=== PATIENT | male | born 1985 | race Asian ===

== ENCOUNTER 2019-11-23 06:48 | Emergency (ER) | payer OTHER ==
[~2019-11-23] VITALS: Ht 177.8 cm; Wt 106.6 kg
--- NOTE | 2019-11-23 07:10 | NUR ---
Dr. Garcia at bedside for MSE
[2019-11-23] MEDS ORDERED: IBUPROFEN 600 MG TABLET ONE (07:22)
[2019-11-23] MEDS ORDERED: IBUPROFEN 600 MG TABLET PO ONE (07:30)
--- NOTE | 2019-11-23 07:32 | NUR ---
Patient discharged to home in stable condition. Written and verbal after care instructions given. Patient verbalizes understanding of instructions. Stressed follow up or return to ER for worsening s/s. Patient ambulating with steady gait. NAD noted
[2019-11-23 07:36] VITALS: BP 143/93
== END 2019-11-23 07:34 | disposition home or self-care (01) ==
LOC: ER 06:59
DX: S16.1XXA Strain of muscle, fascia and tendon at neck level, initial encounter (principal); S46.911A Strain of unspecified muscle, fascia and tendon at shoulder and upper arm level, right arm, initial encounter; S10.81XA Abrasion of other specified part of neck, initial encounter; Y04.8XXA Assault by other bodily force, initial encounter; Y93.F9 Activity, other caregiving; Y92.230 Patient room in hospital as the place of occurrence of the external cause; Y99.0 Civilian activity done for income or pay
CPT/HCPCS: A4663

== ENCOUNTER 2020-03-07 02:13 | Emergency (ER) | payer OTHER ==
[~2020-03-07] VITALS: Ht 177.8 cm; Wt 108.9 kg
--- NOTE | 2020-03-07 02:25 | NUR ---
Dr Saini at bedside for MSE.
[2020-03-07] MEDS ORDERED: IBUPROFEN 400 MG TABLET PO ONE (02:30)
[2020-03-07] MEDS ORDERED: IBUPROFEN 400 MG TABLET ONE (02:34)
--- NOTE | 2020-03-07 03:03 | NUR ---
Patient was dishcarged from ER. MD advised patient that he may return to work tonight, as long as he won't be required to use his L hand. Furthermore, an excuse for work was provided for patient's next shift so he can go to worker's comp and figure out what the next steps are. Thumb spica velcro splint applied. Rest, Ice, Compress and Elevate emphasized. Written and verbal after care instructions given also given, along with prescription. Patient verbalizes understanding of instructions. Stressed follow up or return to ER for worsening s/s. Patient ambulated out of ED in steady gait.
[2020-03-07 03:15] VITALS: BP 150/89
== END 2020-03-07 03:00 | disposition home or self-care (01) ==
LOC: ER 02:15
DX: S63.602A Unspecified sprain of left thumb, initial encounter (principal); X50.0XXA Overexertion from strenuous movement or load, initial encounter; X50.9XXA Other and unspecified overexertion or strenuous movements or postures, initial encounter; Y93.F9 Activity, other caregiving; Y92.238 Other place in hospital as the place of occurrence of the external cause; Y99.0 Civilian activity done for income or pay; R03.0 Elevated blood-pressure reading, without diagnosis of hypertension
CPT/HCPCS: 73130; A4663

== ENCOUNTER 2021-04-18 00:32 | Emergency (ER) | payer OTHER ==
[~2021-04-18] VITALS: Ht 177.8 cm; Wt 117.9 kg
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
--- NOTE | 2021-04-18 00:43 | NUR ---
Dr. Mix on bedside for MSE.
--- NOTE | 2021-04-18 01:34 | NUR ---
Dr. Mix on bedside.
[2021-04-18 01:41] VITALS: BP 143/87
--- NOTE | 2021-04-18 01:41 | NUR ---
Patient discharged to home in stable condition. Written and verbal after care instructions given. Patient verbalizes understanding of instructions. Stressed follow up or return to ER for worsening s/s. Patient ambulated fr the ER with steady gait. All belongings with patient.
== END 2021-04-18 01:42 | disposition home or self-care (01) ==
LOC: ER 00:39
DX: S09.90XA Unspecified injury of head, initial encounter (principal); Y04.0XXA Assault by unarmed brawl or fight, initial encounter; W18.39XA Other fall on same level, initial encounter; Y92.89 Other specified places as the place of occurrence of the external cause; R03.0 Elevated blood-pressure reading, without diagnosis of hypertension
CPT/HCPCS: A4663